=== PATIENT | female | born 1980 | race Caucasian/White ===

== ENCOUNTER → 2017-09-23 | Outpatient (CLI) | payer OTHER ==
[~2017-09-23] MED LIST: TOPI50TA16 PO
--- NOTE | 2017-09-23 13:44 | DIAGNOSTIC IMAGING REPORT ---
L LOWER EXT JOINT WITHOUT CLINICAL HISTORY: 36 years-old Female presenting with ACUTE L ANKLE PAIN, swelling and pain for 6 weeks, extends past the mid foot, no history of trauma, history of melanoma and reflex sympathetic dystrophy. TECHNIQUE: Multisequence, multiplanar MR imaging of the left ankle was performed without the use of intravenous contrast. IV contrast: None. COMPARISON: None. FINDINGS: Localizer images: Unremarkable. No bony edema. Superficial subcutaneous edema noted along the medial anterior lower leg extending beyond the ankle mortise to the medial foot. Minimal superficial subcutaneous edema noted overlying the peroneal tendons at the level of the ankle mortise. Articular cartilage grossly preserved. No large ankle joint effusion. No infiltration of the sinus tarsi. Achilles tendon and plantar fascia normal. Anterior tendons intact. Posterior tendons intact though minimal fluid noted tracking along the tibialis posterior. Peroneal longus and brevis tendons intact. Anterior and posterior tibiofibular ligaments intact. Anterior and posterior talofibular ligaments intact. Deltoid ligament intact. IMPRESSION: 1. Edema tracks along the medial ankle with regional trace fluid in the tibialis posterior tendon sheath. This could suggest minimal changes of synovitis. No ligamentous tear or bony edema. Electronically signed by: Héctor Lyles M.D. 09/23/2017 1:43 PM Dictated Date/Time: 09/23/2017 1:33 PM
== END | disposition home or self-care (01) ==
LOC: C.MRIBC 12:21
PROVIDERS: ATTEND Physician Assistant
DX: M25.572 Pain in left ankle and joints of left foot (principal)

== ENCOUNTER → 2017-10-27 | Outpatient (CLI) | payer OTHER ==
[~2017-10-27] MED LIST changes: +TRAM-10 PO
[2017-10-27 12:41] LABS: BASO % 0.9 %; BASO ABS # 0.05 K/uL (0-0.2); EOS % 4.3 %; EOS ABS # 0.25 K/uL (0-0.5); HEMATOCRIT 45.8 % (37-47); HEMOGLOBIN 15.8 g/dL (12.0-16.0); IG# 0.01 K/uL (0.00-0.02); LYMPH % 26.9 %; LYMPH ABS # 1.55 K/uL (1.2-3.4); MEAN CELL VOLUME 93.7 fL (80-100); MEAN CORPUSCULAR HEMOGLOBIN 32.3 pg (25-34); MEAN CORPUSCULAR HGB CONC 34.5 g/dl (32-36); MEAN PLATELET VOLUME 9.7 fL (7.4-10.4); MONO % 9.5 %; MONO ABS # 0.55 K/uL (0.11-0.59); NEUT % 58.2 %; NEUT ABS # 3.35 K/uL (1.4-6.5); PLATELET COUNT 309 K/uL (130-400); RED CELL DISTRIBUTION WIDTH CV 12.7 % (11.5-14.5); RED CELL DISTRIBUTION WIDTH SD 43.6 fL (36.4-46.3); WHITE BLOOD COUNT 5.76 K/uL (4.8-10.8)
[2017-10-27 17:47] LABS: ALBUMIN 4.7 gm/dl (3.4-5.0); ALT/SGPT 19 U/L (12-78); BLOOD UREA NITROGEN 8 mg/dl (7-18); CALCIUM 9.4 mg/dl (8.5-10.1); CARBON DIOXIDE 27 mmol/L (21-32); CREATININE 0.63 mg/dl (0.60-1.20); GLUCOSE 90 mg/dl (70-99); SODIUM 136 mmol/L (136-145)
[2017-10-27 17:51] LABS: ALKALINE PHOSPHATASE 55 U/L (45-117); AST/SGOT 18 U/L (15-37)
[2017-11-02 12:17] LABS: ANA SCREEN TC 249X POSITIVE (NEGATIVE)
== END | disposition home or self-care (01) ==
LOC: C.LABPBG 10:59
PROVIDERS: ATTEND Family Medicine
DX: M25.571 Pain in right ankle and joints of right foot (principal)

== ENCOUNTER 2018-01-25 12:10 | Emergency (ER) | payer OTHER ==
[~2018-01-25] VITALS: Ht 167.6 cm; Wt 65.4 kg
[~2018-01-25 12:10] MED LIST changes: -TRAM-10 PO
[2018-01-25 12:22] VITALS: TEMP 37; Ht 167.6 cm; Wt 65.4 kg
[2018-01-25] MEDS ORDERED: TRAM-10 PO (12:28)
[2018-01-25] MEDS ORDERED: TRAMADOL HCL 50 MG TAB PO STA (12:49)
[2018-01-25] MEDS ORDERED: IBUPROFEN 600 MG TAB PO STA (12:49)
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
[2018-01-25 14:05] VITALS: BP 127/80; PULSE 71; O2SAT 96
== END 2018-01-25 14:00 | disposition home or self-care (01) ==
LOC: EDBD 12:10 → C.EDC 12:11
DX: V89.2XXA Person injured in unspecified motor-vehicle accident, traffic, initial encounter (principal); M25.551 Pain in right hip; R51 Headache; V43.52XA Car driver injured in collision with other type car in traffic accident, initial encounter; Z91.011 Allergy to milk products; Z91.018 Allergy to other foods

== ENCOUNTER 2021-05-22 05:35 | Observation (INO) ==
--- NOTE | 2021-05-06 11:31 | Anesthesiology Consultation ---
Date of Service May 06, 2021 Assessment & Plan (1) Encounter for pre-operative examination: - COVID screening: Per assessment on 05/05: Travel screen negative, no known COVID-19 positive contacts or current COVID-19 related symptoms. Surgeon arranging preop COVID testing (scheduled 05/20; SOREN Odom). Awaiting results. Patient reports that she does not wear a mask in public and is not vaccinated, therefore will order cepheid AM DOS. Order placed. OR made aware. - Check test AM DOS Chart Review Chart Review: Acceptable Risk for Surgery and Patient NOT seen in Pre Admission Testing History Surgery Operation Date: 05/22/21 07:45 Proposed Procedures p Spine C6-C7 Anterior Cervical Discectomy Fusion Spinal Cord Monitoring - Garfield Mirza DO s C5-C6 Hardware Removal - Garfield Mirza DO Height/Weight Height: 5 ft 6 in Weight: 70.307 kg Allergies Allergy/AdvReac Type Severity Reaction Status Date / Time gluten Allergy Severe Celiac Verified 05/06/21 11:30 disease shellfish derived Allergy Severe Lip Verified 05/06/21 11:30 swelling, GI issues wheat Allergy Severe Celiac Verified 05/06/21 11:30 disease No Known Drug Allergies Allergy Verified 05/05/21 16:37 Medications Home Medications Medication Instructions Recorded Confirmed Last Taken ibuprofen-famotidine [Duexis] 1 tab PO TID 05/05/21 05/05/21 Unknown loratadine [Claritin] 10 mg PO QAM 05/05/21 05/05/21 Unknown methylprednisolone [Medrol (Jose Cruz)] 4 mg PO UD 05/05/21 05/05/21 Unknown Past Medical History Medical History Allergic rhinitis Celiac disease Melanoma of thigh Paresthesias Past Family History Family History Aunt Breast cancer Family/Other Diabetes Kidney disease Breast cancer Sister Ovarian cancer, Onset Age: 39 unknown type Mother Diabetes Cerebral aneurysm Hypertension Stroke Other No family history of adverse response to anesthesia Past Surgical History Surgical History H/O wisdom tooth extraction History of esophagogastroduodenoscopy (EGD) History of surgical removal of skin lesion left thigh melanoma S/P cervical spinal fusion S/P D&C (status post dilation and curettage) after retained POCs after S/P foot surgery right tendon repair S/P tonsillectomy Social History Smoking Status: Never smoker Do You Dip or Chew Tobacco: No Hx Alcohol Use: Yes Alcohol type: wine and hard liquor alcohol intake frequency: a few times a month Hx Substance Use: No substance use type: does not use
[2021-05-22] MEDS ORDERED: GABAPENTIN 900 MG DOSE PO SCH (06:00)
[2021-05-22] MEDS ORDERED: CeleBREX 200 MG CAP PO SCH (06:00)
[2021-05-22] MEDS ORDERED: ACETAMINOPHEN 500 MG TAB PO SCH (06:00)
[2021-05-22] MEDS ORDERED: LR 15ML/HR IV SCH (06:00)
[2021-05-22] MEDS ORDERED: ceFAZolin 1000MG 1,000 MG/7.5 ML SYR IV SCH (06:00)
[2021-05-22] MEDS ORDERED: LIDOCAINE 2% 2 ML VIAL/AMP(20MG/ML) INFIL ONE (06:43)
[2021-05-22] MEDS ORDERED: ROCURONIUM BROMIDE 10 MG/ML 5 ML VIAL IV ONE (06:43)
[2021-05-22] MEDS ORDERED: fentaNYL citrate 100 MCG/2 ML VIAL ONE (06:43)
[2021-05-22] MEDS ORDERED: DEXAMETHASONE SOD INJ 4 MG/ML VIAL ONE (06:43)
[2021-05-22] MEDS ORDERED: PROPOFOL IV EMULSION 10 MG/ML 20 ML VIAL IV ONE (06:43)
[2021-05-22] MEDS ORDERED: ONDANSETRON INJ 2 MG/ML 2 ML VIAL ONE (06:43)
[2021-05-22] MEDS ORDERED: MIDAZOLAM HCL 1 MG/ML 2ML VIAL ONE (06:43)
[2021-05-22] MEDS ORDERED: SUCCINYLCHOLINE CHLORIDE 20 MG/ML 10 ML VIAL IV ONE (06:43)
[2021-05-22] MEDS ORDERED: PROPOFOL IV EMULSION 10 MG/ML 100 ML VIAL IV ONE (06:49)
[2021-05-22] MEDS ORDERED: SCOPOLAMINE 1 MG TDSY TD ONE (07:10)
[2021-05-22] MEDS ORDERED: LABETALOL HCL IV 5 MG/ML 20ML IV PRN (07:17)
[2021-05-22] MEDS ORDERED: ONDANSETRON INJ 2 MG/ML 2 ML VIAL IV PRN ×2 (07:17→11:08)
[2021-05-22] MEDS ORDERED: HYDROmorphone INJ 1 MG/ML SYRINGE IV PRN ×2 (07:17→11:08)
[2021-05-22] MEDS ORDERED: ATROPINE SULFATE 0.1 MG/ML 10ML SYR IV PRN (07:17)
[2021-05-22] MEDS ORDERED: PROMETHAZINE HCL 12.5 MG in SODIUM CHLORIDE 0.9% 50 ML IV PRN ×2 (07:17→11:08)
--- NOTE | 2021-05-22 07:36 | History & Physical Bridge Note ---
Date of Service May 22, 2021 History & Physical Bridge Note I have examined the patient, reviewed the History & Physical and in the interval since the performance of the History & Physical I have noted the following changes of clinical significance: no changes noted
--- NOTE | 2021-05-22 07:37 | History & Physical Report ---
Date of Service May 22, 2021 Assessment & Plan (1) Herniation of cervical intervertebral disc with radiculopathy: Plan: C6-C7 anterior cervical discectomy and fusion, C5-C6 hardware removal History of Present Illness Chief Complaint: Neck and arm pain Primary Care Provider: Fuad Whitaker This is a 40-year-old female who presents with worsening neck and arm symptoms after failing course of nonoperative care she is here for surgical invention. Allergies Allergy/AdvReac Type Severity Reaction Status Date / Time gluten Allergy Severe Celiac Verified 05/22/21 06:07 disease shellfish derived Allergy Severe Lip Verified 05/22/21 06:07 swelling, GI issues wheat Allergy Severe Celiac Verified 05/22/21 06:07 disease No Known Drug Allergies Allergy Verified 05/22/21 06:07 Home Medications Medication Instructions Recorded Confirmed Type ibuprofen 800 mg-famotidine 26.6 1 tab PO TID 05/05/21 05/22/21 History mg tablet (Duexis) loratadine 10 mg tablet (Claritin) 10 mg PO QAM 05/05/21 05/22/21 History Past Med/Surg History Medical History Allergic rhinitis Celiac disease Melanoma of thigh Paresthesias Surgical History H/O wisdom tooth extraction History of esophagogastroduodenoscopy (EGD) History of surgical removal of skin lesion left thigh melanoma S/P cervical spinal fusion S/P D&C (status post dilation and curettage) after retained POCs after S/P foot surgery right tendon repair S/P tonsillectomy Family History Aunt Breast cancer Family/Other Diabetes Kidney disease Breast cancer Sister Ovarian cancer, Onset Age: 39 unknown type Mother Diabetes Cerebral aneurysm Hypertension Stroke Other No family history of adverse response to anesthesia Social History (Updated 10/26/19 @ 12:31 by Wne Polo) Smoking Status: Never smoker Second Hand Exposure: No; Do You Dip or Chew Tobacco: No; Tobacco Cessation Education Requested by Patient: No Hx Alcohol Use: Yes Alcohol type: wine and hard liquor Hx Substance Use: No Preferred Language: Bulgarian Communication Ability: 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
[2021-05-22] MEDS ORDERED: HYDROmorphone INJ 2 MG/ML SYR/VIAL ONE (08:15)
[2021-05-22] MEDS ORDERED: FLOSEAL HEMOSTATIC MATRIX 10ML TOP ONE (09:03)
--- NOTE | 2021-05-22 09:11 | Operative Report ---
Post Operative Report Pre & Post Diagnosis Operation Date: 05/22/21 07:45 Pre-Op Diagnosis: Spinal Stenosis, Cervical Region Post-Op Diagnosis: Spinal Stenosis, Cervical Region I identified the patient and participated in the time-out.: Yes Procedure Operation Date: 05/22/21 07:45 Actual Procedures #1 anterior cervical discectomy with bilateral foraminotomies C6-7. #2 intracervical arthrodesis C6-C7. #3 placement of globus coalition cage 7 mm in height filled with I factor C6-C7. Surgeon Garfield Mirza, Farmworker [employer] Eric Vergara Estimated Blood Loss 10 Findings Consistent with Post-Op Diagnosis Discoloration C 67 Specimens None Indications This is a 40-year-old female presents with above-mentioned diagnosis after failing course of nonoperative care she is here for the above-mentioned procedure. Description of Procedure Patient met with identified informed consent obtained. Patient was then taken to the operative suite underwent a patient placed in spine position just table head Matute transcribing operator head. Operative promises well-padded eyes inspected to ensure no external pressure placed upon up at this point the anterior cervical spine was prepped and draped in a sterile fashion. Sharp dissection with the assistance pericardial form down to and exposing anterior cervical spine at C6- C7. I verified my position with fluoroscopy. I did elect to maintain the previous hardware secondary to scarring and exposure. #4 complete discectomy of C6-C7 out to the uncovertebral's bilaterally. This did include removal of all posterior annular fibers longitudinal ligament and bilateral foraminotomies. Endplates were then burred to subcortical bleeding bone and a 7 mm coalition cage filled with I factor tapped in position and screwed into place with fluoroscopic visualization. Incision was then copiously irrigated explored to ensure no damage to surrounding structures remaining bleeding. 10 round JYOTI drain inserted. Incision was then closed with 2 Vicryl in a fashion of 4 Monocryl for final skin closure. Steri-Strip sterile dressings placed. Patient will continue PACU stable condition. Please note spinal cord monitoring was last that the procedure no changes noted. Lastly Eric Vergara was present at the entire surgeon while the patient positioning complex portions of the surgery and final skin closure. I attest to the content of the Intraoperative Record and any orders documented therein. Any exceptions are noted below.
--- NOTE | 2021-05-22 10:57 | Anesthesiology Progress Note ---
Date of Service May 22, 2021 Anesthesia Post Procedure Vital Signs Vital Signs: Temp Pulse Pulse Resp BP BP Pulse Ox 05/22/21 10:39 36.3 C L 72 12 122/83 97 05/22/21 10:29 72 12 120/74 99 05/22/21 10:19 72 12 117/77 97 05/22/21 10:09 74 14 121/77 98 05/22/21 09:59 75 12 121/71 94 05/22/21 09:49 104 H 17 143/89 H 97 05/22/21 09:39 90 17 139/95 97 05/22/21 09:29 36.0 C L 99 H 16 117/70 94 05/22/21 09:09 74 11 L 121/77 97 05/22/21 06:10 36.8 C 88 18 158/85 H 100 Pain Intensity Neck: Pain Intensity: 3 Transfer of Care Handoff Completed per policy Notes Mental Status: alert / awake / arousable Patient Amnestic to Procedure: Yes Nausea / Vomiting: adequately controlled Pain: adequately controlled Airway Patency, RR, SpO2: stable & adequate BP & HR: stable & adequate Hydration State: stable & adequate Anesthetic Complications: no major complications apparent
[2021-05-22] MEDS ORDERED: ACETAMINOPHEN 1,000 MG/100 ML VIAL IV PRN (11:08)
[2021-05-22] MEDS ORDERED: LORazepam 0.5 MG TAB PO PRN (11:08)
[2021-05-22] MEDS ORDERED: ACETAMINOPHEN 500 MG TAB PO PRN (11:08)
[2021-05-22] MEDS ORDERED: DO NOT ADMINISTER FLU VACCINE PRN (11:08)
[2021-05-22] MEDS ORDERED: MAGNESIUM HYDROXIDE SUSP 30 ML UDC PO PRN (11:08)
[2021-05-22] MEDS ORDERED: DO NOT ADMINISTER PNEUMOCOCCAL VACCINE PRN (11:08)
[2021-05-22] MEDS ORDERED: RACEPINEPHRINE 2.25% NEBU SOLN 0.5 ML VIAL INH PRN (11:08)
[2021-05-22] MEDS ORDERED: LORazepam 0.5 MG/1 ML VIAL IV PRN (11:08)
[2021-05-22] MEDS ORDERED: NALOXONE HCL 0.4 MG/1 ML VIAL/CARP IV PRN (11:08)
[2021-05-22] MEDS ORDERED: oxyCODONE HCL IR 5 MG TAB (IMMEDIATE RELEASE) PO PRN (11:08)
[2021-05-22] MEDS ORDERED: ALUMINUM/MAGNESIUM SUSP 30 ML UDC PO PRN (11:08)
[2021-05-22] MEDS ORDERED: FAMOTIDINE 20 MG TAB PO PRN (11:08)
[2021-05-22] MEDS ORDERED: dexAMETHasone 8 MG in SYRINGE 0 ML IV PRN (11:08)
[2021-05-22] MEDS ORDERED: diphenhydrAMINE Capsule 25 MG CAP PO PRN (11:08)
[2021-05-22] MEDS ORDERED: ONDANSETRON 4 MG OD TAB PO PRN (11:08)
[2021-05-22] MEDS ORDERED: HYDROmorphone INJ 0.5 MG/0.5 ML SYR IV PRN (11:08)
[2021-05-22] MEDS ORDERED: METOCLOPRAMIDE HCL INJ 5 MG/ML 2 ML VIAL IV PRN (11:08)
[2021-05-22] MEDS ORDERED: hydrOXYzine HCl 25 MG TAB PO PRN (11:08)
[2021-05-22] MEDS ORDERED: SOD PHOSPHATE/SOD BIPHOSPHATE ENEMA 132 ML BTL PR PRN (11:08)
[2021-05-22] MEDS: LACTATED RINGER'S 1,000 ML IV SCH ×2 (12:05→22:10)
--- NOTE | 2021-05-22 14:28 | Fluoroscopy Report ---
FL cervical 2-3V CLINICAL HISTORY: C6-C7 ACDF COMPARISON STUDY: MRI of the cervical spine March 26, 2021. FLUOROSCOPY TIME: 9 seconds. FLUOROSCOPIC IMAGES: 2 FINDINGS: These images demonstrate a C6-C7 anterior discectomy and fusion. Previous C5-C6 anterior di scectomy and fusion is noted. Endotracheal tube is incidentally noted. There is a suspected surgical drain. IMPRESSION: Fluoroscopy provided for C6-C7 anterior discectomy and fusion. ACT 112: Negative or not required by law. Electronically signed by: Ariel Nichols M.D. 05/22/2021 2:27 PM
[2021-05-22] MEDS: ceFAZolin 1000MG 1,000 MG/7.5 ML SYR IV SCH ×2 (15:56→23:56)
[2021-05-22] MEDS: traMADol HCL 50 MG TABLET PO PRN (19:22)
[2021-05-22] MEDS ORDERED: DOCUSATE SODIUM/SENNA 50/8.6MG TAB PO SCH (21:00)
[2021-05-23] MEDS: traMADol HCL 50 MG TABLET PO PRN ×2 (04:11→08:36)
[2021-05-23] MEDS ORDERED: POLYETHYLENE (MIRALAX) 17 GM PACK PO SCH (06:00)
[2021-05-23] MEDS ORDERED: LORATADINE 10 MG TAB PO SCH (09:00)
--- NOTE | 2021-05-23 09:14 | Discharge Summary ---
Date of Service May 23, 2021 Admission HPI Per Admitting Provider This is a 40-year-old female who presents with worsening neck and arm symptoms after failing course of nonoperative care she is here for surgical invention. Principal Diagnosis Cervical disc condition with radiculopathy Discharge Data Allergies Allergy/AdvReac Type Severity Reaction Status Date / Time gluten Allergy Severe Celiac Verified 05/22/21 06:07 disease shellfish derived Allergy Severe Lip Verified 05/22/21 06:07 swelling, GI issues wheat Allergy Severe Celiac Verified 05/22/21 06:07 disease No Known Drug Allergies Allergy Verified 05/22/21 06:07 Procedures Performed Operation Date: 05/22/21 07:45 Actual Procedures p Spine C6-C7 Anterior Cervical Discectomy Fusion, C5-C6 Hardware Removal, Spinal Cord Monitoring(Not Applicable) - Garfield Mirza DO Ordered Studies 05/22/21 07:00 FL cervical 2-3V Routine Hospital Course (1) Herniation of cervical intervertebral disc with radiculopathy: Patient went anterior cervical discectomy fusion tolerates well second orthopedic for possibly. Postop day 1 she was up and ambulating swallowing well no hoarseness arm symptoms markedly improved. JYOTI drain decreasing appropriately. Strength intact. Subsequent discharge home. Discharge orders instructions from the chart for further review. Total Time Total Time Spent Total Time Spent (In Minutes): 20 minutes Discharge Plan Discharge Items Patient Disposition: Home - Self-Care Reason For Visit: Spinal Stenosis, Cervical Region Discharge Diagnosis: Cervical disc herniation with radiculopathy Activity: As commented below Non-emergency contact: Primary Care Provider Call non-emergency contact if: you have any medication questions Follow-up/Referrals: Fuad Whitaker [Primary Care Provider] - Diet: Regular Addtl Attending Provider Instructions: ACTIVITY RECOMMENDATIONS: SELF CARE INSTRUCTIONS AFTER CERVICAL FUSIONS 1. No smoking. Smoking drastically decreases the chance of a solid fusion. 2. No bending, lifting more than 5 pounds, or twisting (roll like a log when turning in bed). 3. You may shower 3 days after surgery. Thoroughly dry wound. Do not soak in the tub. 4. Cervical collar: Must be worn at all times including sleeping. You may remove the brace only to bath, eat and if you are sitting in a recliner. 5. Please walk as much as you can for exercise. Gradually increase the distance that you walk as your endurance increases. SPECIAL CARE INSTRUCTIONS: VERY IMPORTANT TO READ AND REVIEW A. Do not take any anti-inflammatory medications (i.e. Indocin, Advil, Aspirin, Naprosyn, Aleve, Motrin, etc.) as these may inhibit the chance of a solid fusion. Tylenol is okay to take. B. Your surgical incision has been closed with a cosmetic suture under the skin that will dissolve in about 6 weeks. In 14 days, you can use a pair of clean scissors and cut the suture that is left outside of the skin at the ends of your incision. C. Complications are uncommon, but please contact us if you have any signs or symptoms of: 1. wound infection (fever higher than 102.5 degrees F, redness, separation of wound, drainage, or increasing pain from the incision) 2. blood clots in legs (pain, swelling, redness and warmth in legs) 3. urinary tract infection (fever higher than 102.5 degrees, burning upon urination or increased frequency of urination) 4. nerve problems (inability to walk on your toes or heels, numbness, loss of bowel or bladder control) 5. any other symptoms that concern you. D. Please call the office at if you have any concerns or questions about your operation or recovery. MANAGING PAIN AFTER SPINAL SURGERY 1. Narcotic medication is intended for short-term use and will be provided for surgical pain. Surgical pain usually lasts for a period of 4-6 weeks. Narcotic medication includes Percocet, Vicodin, Darvocet, Tylenol #3 or Lortab. 2. Longer-term pain is more appropriately treated with non-narcotic medication such as Tylenol ES. 3. Muscle spasm is not appropriately treated with narcotics. Muscle relaxers such as Soma, Flexeril or Skelaxin can be used along with Tylenol ES. 4. Remember that we all live with some "aches and pains". This is not unusual or uncommon after an injury or as we get older. 5. We will provide appropriate medication within the normal guidelines of their prescribed use. We will also be very cautious and aware of potential abuse and extended duration of patients' medication needs. 6. Please allow 2-3 days to process refills. Prescriptions will not be mailed but must be picked up at the office. FOLLOW UP VISIT: Keep your scheduled follow-up appointment. Any questions, please call the office at . Pending Studies at Discharge: No Stand-Alone Forms: My [facility] Medications and DC Order Prescriptions: New tramadol 50 mg tablet 50 mg PO Q6H PRN (Reason: pain, moderate) Qty: 20 RF: 0 oxycodone 5 mg tablet 5 mg PO Q6H PRN (Reason: pain, severe) Qty: 20 RF: 0 Continued loratadine [Claritin] 10 mg Tablet 10 mg PO QAM RF: 0 Discontinued Duexis 800-26.6 mg Tablet 1 tab PO TID RF: 0 Discharge Orders: Discharge Order (Routine); Ordered 05/23/21 Ordered By: Garfield Mirza Admission Data Admit Date/Time: 05/22/21 09:13 Attending Provider: Garfield Mirza Admit Provider: Garfield Mirza Primary Care Provider: Fuad Whitaker
[2021-05-24] MEDS ORDERED: bisacodyL 10 MG SUPP PR PRN (08:00)
== END 2021-05-23 10:52 | disposition home or self-care (01) ==
LOC: ASU 05:35 → INTOOBSV 09:13 → 3E 09:13